=== PATIENT | female | born 1990 | race Two or more races ===

== ENCOUNTER 2021-05-21 21:23 | Emergency (ER) | payer MEDICAID ==
[~2021-05-21] VITALS: Ht 165.1 cm; Wt 69.9 kg
--- NOTE | 2021-05-21 21:31 | NUR ---
pt ambulated to room 5 with complaints of possible finger infection
[2021-05-21] MEDS ORDERED: SULFAMETH/TRIMETH 800/160 MG TABLET PO ONE (21:45)
[2021-05-21] MEDS ORDERED: LIDOCAINE HCL 2% 20 ML VIAL IJ ONE (21:45)
[2021-05-21] MEDS ORDERED: SULF1TAB48 PO (21:54)
[2021-05-21] MEDS ORDERED: SULFAMETH/TRIMETH 800/160 MG TABLET ONE (22:02)
--- NOTE | 2021-05-21 22:17 | NUR ---
Patient discharged to home in stable condition. Written and verbal after care instructions given. Patient verbalizes understanding of instructions. Stressed follow up or return to ER for worsening s/s.
[2021-05-21 22:18] VITALS: BP 143/83
== END 2021-05-21 22:18 | disposition home or self-care (01) ==
LOC: ER 21:26
DX: L03.012 Cellulitis of left finger (principal); R03.0 Elevated blood-pressure reading, without diagnosis of hypertension
CPT/HCPCS: 10060; 87070; 87077; 99283; J3490; A4663